=== PATIENT | male | born 1945 | race Caucasian/White ===

== ENCOUNTER 2022-06-02 16:30 | Inpatient (IN) | payer MEDICARE ==
[~2022-06-02] VITALS: Ht 170.2 cm; Wt 67.1 kg
[2022-06-02 17:23] LABS: BG BASE EXCESS 0.6 mmol/L (-2.0-2.0); BG CARBOXYHEMOGLOBIN 0.8 % (0.5-1.5); BG DEOXYHEMOGLOBIN 5.8 % (0.0-5.0); BG HCO3 ACT 22.5 mmol/L (22.0-26.0); BG METHEMOGLOBIN 0.3 % (0.0-1.5); BG OXYGEN SATURATION 94.1 % (92.0-98.5); BG OXYHEMOGLOBIN 93.1 % (94.0-97.0); BG PCO2 28.9 mmHg (35.0-45.0); BG PO2 64.8 mmHg (75.0-100.0); BG SAMPLE SITE LEFT BRACHIAL; BG TOTAL HEMOGLOBIN 13.9 g/dL (12.0-18.0); BG VENT MODE ROOM AIR
[2022-06-02 18:04] LABS: HEMATOCRIT. 39.8 % (42.0-52.0); HEMOGLOBIN. 13.5 g/dL (14.0-18.0); MEAN CORPUSCULAR HEMOGLOBIN 31.1 pg (28.0-32.0); MEAN CORPUSCULAR VOLUME 91.5 fL (80.0-94.0); MEAN PLATELET VOLUME 10.2 fl (7.4-10.4); PLATELET 228 x1000/uL (130-400); RED BLOOD CELL COUNT 4.35 mill/uL (4.7-6.1); RED CELL DISTRIBUTION WIDTH 13.7 % (11.6-14.6)
[2022-06-02 18:13] LABS: CHLORIDE 93 mEq/L (98-107)
[2022-06-02 18:23] LABS: BETA HYDROXYBUTYRATE 0.4 mMol/L (0.0-0.3); CREATINE KINASE 115 IU/L (39-308); ETHANOL BLOOD < 10 mg/dL
[2022-06-02 18:38] LABS: INR 1.1; PARTIAL THROMBOPLASTIN TIME 25.5 sec (23.4-31.0); PROTHROMBIN TIME 11.4 sec (9.6-11.0)
[2022-06-02] MEDS ORDERED: PIPERACILLIN/TAZ 3.375G PREMIX 50 ML IV NR (18:45)
[2022-06-02] MEDS ORDERED: SODIUM CHLORIDE 0.9% 1000ML BAG (SEPSIS BOLUS) IV NR (18:45)
[2022-06-02 18:48] LABS: PLATELET ESTIMATE NORMAL
[2022-06-02] MEDS: VANCOMYCIN 1G PREMIX 200 ML IV NR ×2 (19:37→19:38)
[2022-06-02] MEDS ORDERED: ASPIRIN 325MG EC TABLET PO NR (19:45)
[2022-06-02 23:23] VITALS: BP 112/54
[2022-06-03] VITALS: BP 112/54
[2022-06-03] MEDS ORDERED: DEXTROSE 50% WATER 50ML SYRINGE IV PRN (00:15)
[2022-06-03] MEDS ORDERED: ACETAMINOPHEN 325MG TABLET PO PRN (00:15)
[2022-06-03 04:00] VITALS: BP 107/58
[2022-06-03] MEDS: PIPERACILLIN/TAZOBACTAM 3.375G in DEXT 5% WATER 50ML IV SCH ×3 (05:38→21:39)
[2022-06-03] MEDS: BLOOD SUGAR DIAGNOSTIC STRIP TEST SCH ×4 (05:38→21:31)
[2022-06-03] MEDS: PANTOPRAZOLE 40MG DR TABLET PO SCH (05:48)
[2022-06-03] MEDS ORDERED: PIPERACILLIN/TAZOBACTAM 3.375GM/50ML PREMIX IV SCH (06:00)
[2022-06-03] MEDS: INSULIN LISPRO 100 UNITS/ML SUBCUT SCH ×5 (06:17→21:41)
[2022-06-03 07:44] LABS: BASOPHILS % 0.2 % (0.0-2.0); EOSINOPHILS % 0.3 % (0.0-5.0); HEMATOCRIT. 35.2 % (42.0-52.0); HEMOGLOBIN. 11.9 g/dL (14.0-18.0); LYMPHOCYTES % 11.3 % (20.0-50.0); MEAN CORPUSCULAR HEMOGLOBIN 30.9 pg (28.0-32.0); MEAN CORPUSCULAR VOLUME 91.2 fL (80.0-94.0); MEAN PLATELET VOLUME 10.2 fl (7.4-10.4); MONOCYTES % 8.6 % (2.0-8.0); NEUTROPHILS % 79.6 % (40.0-76.0); PLATELET 198 x1000/uL (130-400); RED BLOOD CELL COUNT 3.86 mill/uL (4.7-6.1); RED CELL DISTRIBUTION WIDTH 13.5 % (11.6-14.6)
[2022-06-03 07:54] LABS: CHLORIDE 103 mEq/L (98-107)
[2022-06-03 08:00] VITALS: BP 108/52
[2022-06-03 08:05] LABS: HDL CHOLESTEROL 45 mg/dL (40-59); LDL CHOLESTEROL 47 mg/dL (5-100)
[2022-06-03] MEDS: ASPIRIN 81MG TABLET PO SCH (10:06)
[2022-06-03] MEDS: ENOXAPARIN 40MG/0.4ML SYR SUBCUT SCH (10:07)
[2022-06-03 12:00] VITALS: BP 101/59
[2022-06-03] MEDS: VANCOMYCIN 1G PREMIX 200 ML IV SCH (12:38)
[2022-06-03] MEDS ORDERED: INSULIN GLARGINE 100 UNITS/ML SUBCUT NR (13:00)
[2022-06-03 15:37] LABS: CLARITY URINE CLOUDY (CLEAR); COLOR URINE YELLOW (YELLOW); KETONES URINE NEGATIVE (NEGATIVE); LEUKOCYTE ESTERASE URINE 2+ (NEGATIVE); NITRITE URINE NEGATIVE (NEGATIVE); OCCULT BLOOD URINE 1+ (NEGATIVE); PH URINE 5.5 (4.5-8.0); PROTEIN URINE 1+ (NEGATIVE); SPECIFIC GRAVITY URINE 1.025 (1.005-1.030)
[2022-06-03 15:56] LABS: *AMPHETAMINES SCREEN URINE NEGATIVE (NEGATIVE); *BARBITURATES SCREEN URINE NEGATIVE (NEGATIVE); *BENZODIAZEPINES SCREEN URINE NEGATIVE (NEGATIVE); *COCAINE SCREEN URINE NEGATIVE (NEGATIVE); CANNABINOID URINE SCREEN NEGATIVE (NEGATIVE); METHADONE URINE SCREEN NEGATIVE (NEGATIVE); OPIATES URINE SCREEN NEGATIVE (NEGATIVE); PHENCYCLIDINE URINE SCREEN NEGATIVE (NEGATIVE)
[2022-06-03 16:00] VITALS: BP 112/53
[2022-06-03 20:00] VITALS: BP 111/53
[2022-06-03] MEDS: INSULIN GLARGINE 100 UNITS/ML SUBCUT SCH ×2 (21:42→22:00)
[2022-06-04] VITALS: BP 120/53
[2022-06-04 04:00] VITALS: BP 124/81
[2022-06-04] MEDS: INSULIN LISPRO 100 UNITS/ML SUBCUT SCH ×4 (05:53→21:35)
[2022-06-04] MEDS: VANCOMYCIN 1G PREMIX 200 ML IV SCH (05:53)
[2022-06-04] MEDS: BLOOD SUGAR DIAGNOSTIC STRIP TEST SCH ×4 (06:54→21:04)
[2022-06-04] MEDS: PIPERACILLIN/TAZOBACTAM 3.375G in DEXT 5% WATER 50ML IV SCH ×3 (06:55→21:35)
[2022-06-04] MEDS: PANTOPRAZOLE 40MG DR TABLET PO SCH (06:55)
[2022-06-04 08:00] VITALS: BP 118/52
[2022-06-04] MEDS: ENOXAPARIN 40MG/0.4ML SYR SUBCUT SCH (09:19)
[2022-06-04] MEDS: ASPIRIN 81MG TABLET PO SCH (09:19)
[2022-06-04] MEDS: INSULIN GLARGINE 100 UNITS/ML SUBCUT SCH ×2 (09:25→21:35)
[2022-06-04 12:00] VITALS: BP 125/52
[2022-06-04 16:00] VITALS: BP 106/49
[2022-06-04 20:00] VITALS: BP 131/61
[2022-06-05] VITALS: BP 124/56
[2022-06-05] MEDS: VANCOMYCIN 1G PREMIX 200 ML IV SCH (01:28)
[2022-06-05 04:00] VITALS: BP 123/45
[2022-06-05] MEDS: PIPERACILLIN/TAZOBACTAM 3.375G in DEXT 5% WATER 50ML IV SCH ×2 (05:05→13:04)
[2022-06-05] MEDS: BLOOD SUGAR DIAGNOSTIC STRIP TEST SCH ×2 (06:05→12:05)
[2022-06-05] MEDS: INSULIN LISPRO 100 UNITS/ML SUBCUT SCH ×2 (06:13→13:05)
[2022-06-05 08:00] VITALS: BP 116/54
[2022-06-05] MEDS ORDERED: FAMOTIDINE 20MG TABLET PO SCH (09:00)
[2022-06-05] MEDS: ENOXAPARIN 40MG/0.4ML SYR SUBCUT SCH (09:14)
[2022-06-05] MEDS: ASPIRIN 81MG TABLET PO SCH (09:14)
[2022-06-05] MEDS: INSULIN GLARGINE 100 UNITS/ML SUBCUT SCH (09:20)
[2022-06-05 12:00] VITALS: BP 117/51
[2022-06-05 12:58] LABS: HEMATOCRIT 35.6 % (42.0-52.0); HEMOGLOBIN 12.4 g/dL (14.0-18.0); MEAN CORPUSCULAR HEMOGLOBIN 31.5 pg (28.0-32.0); MEAN CORPUSCULAR VOLUME 90.3 fL (80.0-94.0); PLATELET 242 x1000/uL (130-400); RED BLOOD CELL COUNT 3.94 mill/uL (4.7-6.1); RED CELL DISTRIBUTION WIDTH 13.6 % (11.6-14.6)
[2022-06-05] MEDS ORDERED: PHENAZOPYRIDINE HCL 100MG TABLET PO SCH ×2 (14:30→17:10)
[2022-06-05 15:49] VITALS: BP 139/60
[2022-06-05 16:00] VITALS: BP 139/60
== END 2022-06-05 17:21 | disposition home or self-care (01) | DRG 871 ==
LOC: ER 16:30 → EDBEDREQ 17:54 → 7EST 19:48 → EDBEDREQ 19:54 → EDBEDREQTM 19:54
PROVIDERS: ADMIT Internal Medicine; ATTEND Internal Medicine
DX: A41.9 Sepsis, unspecified organism (principal); I21.A1 Myocardial infarction type 2; N39.0 Urinary tract infection, site not specified; K57.92 Diverticulitis of intestine, part unspecified, without perforation or abscess without bleeding; E87.1 Hypo-osmolality and hyponatremia; E11.65 Type 2 diabetes mellitus with hyperglycemia; Z20.822 Contact with and (suspected) exposure to COVID-19; D64.9 Anemia, unspecified; I25.10 Atherosclerotic heart disease of native coronary artery without angina pectoris; I10 Essential (primary) hypertension; E78.5 Hyperlipidemia, unspecified; Z98.61 Coronary angioplasty status; Z95.1 Presence of aortocoronary bypass graft
CPT/HCPCS: 36415; 36600; 71045; 71250; 74176; 80048; 80053; 80061; 80305; 80320; 81003; 82010; 82375; 82550; 82805; 82962; 83036; 83605; 84484; 85025; 85027; 86850; 86900; 87426; 87804; 93005; 93306; 97162; 99291; C9803; J1650; J1815; J2543; J3370; J7060; G0480